=== PATIENT | male | born 1945 | race Caucasian/White ===

== ENCOUNTER 2017-07-24 17:39 | Emergency (ER) | payer OTHER ==
[2017-07-24] MEDS: IBUPROFEN 800 MG TAB PO (18:33)
[2017-07-24] MEDS: HYDROCODONE/APAP (5/325) TAB PO (18:34)
== END 2017-07-24 18:35 | disposition home or self-care (01) ==
LOC: FTE 17:39
DX: M54.2 Cervicalgia (principal); E03.9 Hypothyroidism, unspecified; F17.210 Nicotine dependence, cigarettes, uncomplicated; Z79.82 Long term (current) use of aspirin
CPT/HCPCS: 99284; Z7502